=== PATIENT | male | born 1935 | race Caucasian/White ===

== ENCOUNTER → 2018-01-02 | Outpatient (CLI) | payer MEDICARE | END | disposition home or self-care (01) | LOC: KCIC 12:28 | DX: R07.81 Pleurodynia (principal); R05 Cough | CPT/HCPCS: 71046; 71100 ==

== ENCOUNTER 2019-10-01 00:01 | Emergency (ER) | payer BC, MEDICARE ==
[~2019-10-01] VITALS: Ht 177.8 cm; Wt 110.0 kg
[2019-10-01] MEDS ORDERED: OXYMETAZOLINE 0.05% NASAL SPRAY 30ML BOTTLE. NS ONE (00:28)
[2019-10-01] MEDS ORDERED: BACITRACIN TOPICAL OINT PACKET. TP ONE (00:33)
[2019-10-01] MEDS: TRANEXAMIC ACID 1,000 MG/10 ML VIAL. TOP ONE (00:50)
[2019-10-01] MEDS: BACITRACIN TOPICAL OINT PACKET. TP ONE (01:05)
[2019-10-01] MEDS: OXYMETAZOLINE 0.05% NASAL SPRAY 30ML BOTTLE. NS ONE (01:05)
--- NOTE | 2019-10-01 01:37 | PHYS DOC ---
Past Medical History Past Medical History: No Pertinent History Past Surgical History: No Surgical History Smoking Status: Light Tobacco Smoker Additional Information: OCCASIONALLY SMOKES A CIGAR Alcohol Use: None Adult General Chief Complaint Chief Complaint: NOSEBLEED [facility] HPI 84-year-old male presents to emergency department with complaints of nosebleed. Patient states he was taking a shower his nosebleed started in the shower is b een ongoing approximate 2 hours prior to his arrival. Patient denies any dizziness, chest pain, shortness of breath, nausea or vomiting. Patient states he takes aspirin daily. This concerns him up from his right naris. Patient denies any headache or visual changes at this time. Nothing makes his symptoms worse, nothing makes his symptoms better. All other ROS negative unless documented in HPI Review of Systems Review of Systems See Above Current Medications Current Medications Current Medications Medications (Trade) Dose Ordered Sig/Geraldine Start Time Stop Time Status Last Admin Dose Admin Bacitracin (Bacitracin Zinc Oint Pkt) 3 pkt 1X ONCE 10/01/19 00:45 10/01/19 00:46 DC 10/01/19 01:05 3 PKT Oxymetazoline HCl (Afrin) 120 spray STK-MED ONCE 10/01/19 00:28 10/01/19 00:28 DC Tranexamic Acid (Cyklokapron) 1,000 mg 1X ONCE 10/01/19 00:30 10/01/19 00:31 DC 10/01/19 00:50 1,000 MG Allergies Allergies Allergies Coded Allergies Type Severity Reaction Last Updated Verified No Known Drug Allergies 10/01/19 No Physical Exam Physical Exam See Above Constitutional: Well developed, well nourished, no acute distress, non-toxic appearance. [] HENT: Normocephalic, atraumatic, bilateral external ears normal, oropharynx moist, no oral exudates, nose bleed out of right naris[] Eyes: PERRLA, EOMI, conjunctiva normal, no discharge. [] Cardiovascular:Heart rate regular rhythm, no murmur [] Lungs & Thorax: Bilateral breath sounds clear to auscultation [] Abdomen: Bowel sounds normal, soft, no tenderness, no masses, no pulsatile masses. [] Skin: Warm, dry, no erythema, no rash. [] Back: No tenderness, no CVA tenderness. [] Extremities: No tenderness, no edema. [] Neurologic: Alert and oriented X 3, no focal deficits noted. [] Psychologic: Affect normal, judgement normal, mood normal. [] Current Patient Data Vital Signs Vital Signs Date Time Temp Pulse Resp B/P (MAP) Pulse Ox O2 Delivery O2 Flow Rate FiO2 10/01/19 00:21 98.3 82 20 184/94 (124) 97 Room Air 98.3 EKG EKG [] Radiology/Procedures Radiology/Procedures [] Course & Med Decision Making Course & Med Decision Making Pertinent Labs and Imaging studies reviewed. (See chart for details) []84-year-old male presents to emergency department with complaints of nosebleed. Patient states he was taking a shower his nosebleed started in the shower is been ongoing approximate 2 hours prior to his arrival. Patient denies any dizziness, chest pain, shortness of breath, nausea or vomiting. Patient states he takes aspirin daily. This concerns him up from his right naris. Patient denies any headache or visual changes at this time. Nothing makes his symptoms worse, nothing makes his symptoms better. No labs obtained. Evaluation was likely posterior bleed, Afrin initially used, [place] a is well applied. With continued drainage and back of his throat, merocel packing applied to right naris No evidence of continued bleeding appreciated on exam Recommend dc home Recommend follow up with ENT Discussed with family/patient at bedside Dragon Disclaimer Dragon Disclaimer This electronic medical record was generated, in whole or in part, using a voice recognition dictation system. Departure Departure Impression: Primary Impression: Epistaxis Disposition: 01 HOME, SELF-CARE Condition: IMPROVED Referrals: NO PCP (PCP) KAT PICKETT MD Patient Instructions: Nosebleed, [id number] Additional Instructions: Recommend follow up with ENT (Dr. Pickett) [employer] for ER Keep nasal packing in until seen by ENT Return to the ER with return of nose bleed or concern of bleeding elsewhere Recommend follow up with PCP in 2 days if unable to get into ENT PADILLA DEL CASTILLO MD Oct 01, 2019 01:37
[2019-10-01 01:54] VITALS: BP 173/79
== END 2019-10-01 02:13 | disposition home or self-care (01) ==
LOC: ER 00:01
DX: R04.0 Epistaxis (principal); Z72.0 Tobacco use
CPT/HCPCS: 30905; 99284